=== PATIENT | female | born 1975 | race Caucasian/White ===

== ENCOUNTER → 2022-11-06 15:14 | Outpatient (CLI) | payer OTHER, SELFPAY ==
[2022-11-06 18:42] LABS: Alanine Aminotransferase 11 U/L (12-78); Albumin Level 4.1 g/dl (3.5-5.0); Alkaline Phosphatase 50 U/L (38-126); Aspartate Amino Transferase 19 U/L (14-36); Bilirubin,Direct 0.1 mg/dl (0.0-0.4); Bilirubin,Indirect 0.4 mg/dL (0.0-0.9); Bilirubin,Total 0.5 mg/dl (0.2-1.3); Bilirubin,Unconjugated 0.4 mg/dL (0.0-1.1); Chol/HDL Ratio 4.9 (1-3.5); Cholesterol 168 mg/dl (140-200); HDL Cholesterol 34 mg/dl (40-60); Total Protein,Serum 6.8 g/dl (6.3-8.2); Triglycerides 140 mg/dl (30-150); VLDL Cholesterol 28 mg/dL (0-40)
[2022-11-06 18:53] LABS: Direct LDL Cholesterol 109.91 mg/dL (100-129)
[2022-11-06 19:00] LABS: Free T4 (Free Thyroxine) 1.47 ng/dl (0.78-2.19)
[2022-11-06 19:13] LABS: Thyroid Stimulating Hormone 1.04 uIU/mL (0.465-4.68)
== END ==
PROVIDERS: PCP Family Medicine; Visit Provider Nurse Practitioner
DX: R06.00 Dyspnea, unspecified (principal); R07.9 Chest pain, unspecified; R00.2 Palpitations; I48.0 Paroxysmal atrial fibrillation; I10 Essential (primary) hypertension; R94.31 Abnormal electrocardiogram [ECG] [EKG]
CPT/HCPCS: 36415; 80061; 80076; 84439; 84443; 93225; 93226

== ENCOUNTER 2022-11-22 08:48 | Emergency (ER) | payer OTHER, SELFPAY ==
[2022-11-22] VITALS (15 sets, daily range): BP systolic 131–178; BP diastolic 65–94; PULSE 72–88; RESP 12–22; TEMP 36.8–37.2; O2SAT 96–100; BMI 46.0
--- NOTE | 2022-11-22 08:48 | ECG_ITS ---
APPROVED REPORT Exam: Resting ECG HR:93 bpm ECG Measurements Heart Rate 93 AXES SD 129 P 50 QRSd 83 QRS 17 QT 357 T 22 QTc 408 Conclusion SINUS RHYTHM NONSPECIFIC T-WAVE ABNORMALITY BORDERLINE ECG UNCONFIRMED REPORT Electronically signed by : Son Houser MD 11/23/2022 08:55:12
--- NOTE | 2022-11-22 08:54 | XR_ITS ---
FINAL REPORT CLINICAL HISTORY: CHEST PAIN, soa FINDINGS: A portable view of the chest is obtained. Cardiac and mediastinal silhouettes are normal. The lungs are clear. There is no pleural effusion or pneumothorax. IMPRESSION: No acute process on this portable exam. Reviewed, Interpreted and Dictated by Florencia Ruiz MD Transcribed by Betty Reddy Authenticated and [facility]
--- NOTE | 2022-11-22 09:00 | PC.NURSE ---
XR at bedside.
--- NOTE | 2022-11-22 09:17 | HMH.EDGENADL ---
Discharge Plan Disposition Patient Disposition: Home, Self-Care Prescriptions Prescriptions: No Action No Known Home Medications Referrals Follow up/Referrals: Provider,MD Vonnie [Primary Care Provider] - See instructions Activity Restrictions/Add. Instructions Additional Instructions/Restrictions: Your palpitations and headache were secondary to acute blood loss anemia from your prolonged abnormal uterine bleeding please continue follow-up with your [facility] doctor in specifically her hysterectomy next that was scheduled today. Please do not restart your Eliquis until indicated by your primary care physician. Return with any concerns. Clinical Impressions Clinical Impression: Palpitations, Signs and symptoms of anemia, Acute blood loss anemia, Abnormal uterine bleeding Discharge ED Provider: Gio Kaplan General Adult HPI General Chief complaint: Recheck/Abnormal Lab/Rx Stated complaint: chest pain Time Seen by Provider: 11/22/22 09:18 History of Present Illness HPI narrative: Patient is a 47-year-old female presenting with multiple complaints. States that she is been having chest palpitations with exertion recently. States that she is also been having significant vaginal bleeding over the last month. Claims that she was diagnosed with atrial fibrillation within the last month and started on Eliquis which is around the time she started having the symptoms including the vaginal bleeding she self DC'd that medication and has been following with [facility] doctor with escalating doses of hormone therapy to getting control of her vaginal bleeding which has been slightly improving. She states that her chest discomfort is described as pounding and specifically with exertion there is no pressure or significant pain. She denies any fevers chills denies any history of PTE or DVT. Related Data Home Medications Medication Instructions Recorded Confirmed No Known Home Medications 11/06/22 11/06/22 Allergies Allergy/AdvReac Type Severity Reaction Status Date / Time acetaminophen [From Percocet] AdvReac Nausea Verified 11/06/22 14:22 oxycodone [From Percocet] AdvReac Nausea Verified 11/06/22 14:22 [facility] Disclaimer: The information contained in this section may have been updated after the patient was seen, as this information can be updated by other users. Medical History (Updated 11/22/22 @ 14:33 by Gio Kaplan MD) Abnormal electrocardiogram [ECG] [EKG] Atrial fibrillation Chest pain Dyspnea HTN (hypertension) PAF (paroxysmal atrial fibrillation) Palpitations Family History (Updated 11/06/22 @ 14:21 by Lindsey Pineda) Mother Diabetes Social History (Updated 11/06/22 @ 14:19 by Lindsey Pineda) Smoking Status: Never smoker alcohol intake: never substance use type: denies use current occupational status: employed Travel in the last 8 weeks: Inside the [place] ROS Obtained: Yes All systems reviewed & no additional complaints except as documented Physical Exam General General appearance: alert and other (Pallorous) Chest Chest inspection: Present normal inspection and symmetric chest wall rise; Absent tenderness or rash Respiratory Respiratory exam: Present normal lung sounds bilaterally; Absent respiratory distress, wheezes or stridor Cardiovascular Cardiovascular exam: Present regular rate; Absent tachycardia Abdominal Exam Abdominal exam: Present soft; Absent distention or tenderness Neurological Exam Neurological exam: Present alert; Absent oriented X3 Medical Decision Making Timi Inquiry Pt receiving controlled substance: No Vital Signs: 11/22/22 09:13 11/22/22 09:33 11/22/22 12:20 Temperature 98.3 F 98.9 F Temperature Source Oral Oral Pulse Rate 87 88 Pulse Rate [Left Radial] 86 Respiratory Rate 22 18 20 TAR Vitals Timing Pre-Blood Vitals Blood Pressure 178/77 H 133/93 H Blood Pressure [Right Arm] 169/87 H Blood P
[2022-11-22 09:18] LABS: Basophils # 0.1 K/mm3 (0-0.2); Basophils % 0.7 % (0.1-2.0); Eosinophils # 0.1 K/mm3 (0.0-0.4); Eosinophils % 1.5 % (0.1-12.0); Hematocrit 22.1 % (37.0-47.0); Lymphocytes # 2.3 K/mm3 (0.7-4.5); Mean Corpuscular HGB Conc 31.2 g/dL (31.8-35.4); Mean Corpuscular Hemoglobin 27.2 pg (27.0-31.2); Mean Corpuscular Volume 87.2 fl (81-99); Monocytes # 0.4 K/mm3 (0.1-1.0); Monocytes % 5.5 % (1.7-9.3); Neutrophils # 4.6 K/mm3 (1.8-7.8); Neutrophils % 61.3 % (37.0-80.0); Platelet Count 432 K/mm3 (142-424); Red Blood Count 2.53 M/mm3 (4.20-5.40); Red Cell Distribution Width 19.1 % (11.5-17.5); White Blood Count 7.6 K/mm3 (4.8-10.8)
[2022-11-22 09:20] LABS: Chloride 115 mmol/L (98-107); Potassium 3.8 mmoL/L (3.5-5.1); Sodium 140 mmol/L (136-145)
[2022-11-22 09:23] LABS: Anion Gap 7.8 mEq/L (5-15); Blood Urea Nitrogen 8 mg/dl (7-17); Calcium 7.8 mg/dl (8.4-10.2); Carbon Dioxide 21 mmol/L (22.0-30.0); Creatinine Clearance Estimated 96 mL/min (50-200); Estimated Glomerular Filt Rate 107 ml/min (>60); GFR (African American) 130 ML/MIN (>60); Glucose 97 mg/dl (74-100)
[2022-11-22 09:30] LABS: Hemoglobin 6.9 g/dL (12.2-16.2)
--- NOTE | 2022-11-22 09:31 | PC.NURSE ---
Received critical results, Hgb 6.9, Hct 22.1. Dr. Kaplan notified.
[2022-11-22 09:38] LABS: Troponin I < 0.01 ng/ml (0.00-0.034)
[2022-11-22 12:50] LABS: Troponin I < 0.01 ng/ml (0.00-0.034)
== END 2022-11-22 14:50 | disposition home or self-care (01) ==
PROVIDERS: Emergency Provider Student in an Organized Health Care Education/Training Program
DX: R00.2 Palpitations (principal); D64.9 Anemia, unspecified; N93.9 Abnormal uterine and vaginal bleeding, unspecified; R07.89 Other chest pain; I48.0 Paroxysmal atrial fibrillation; I10 Essential (primary) hypertension; Z86.79 Personal history of other diseases of the circulatory system; Z83.3 Family history of diabetes mellitus
CPT/HCPCS: 36415; 71045; 80048; 84484; 85025; 86850; 93005; 99285; P9016

== ENCOUNTER 2023-05-16 13:33 | Emergency (ER) | payer OTHER, SELFPAY ==
--- NOTE | 2023-05-16 13:29 | ECG_ITS ---
APPROVED REPORT Exam: Resting ECG HR:160 bpm ECG Measurements Heart Rate 160 AXES QRSd 78 QRS 57 QT 281 T 38 QTc 370 Conclusion ATRIAL FIBRILLATION WITH RAPID VENTRICULAR RESPONSE MODERATE ST DEPRESSION [0.05+ mV ST DEPRESSION] CRITICAL TEST RESULT UNCONFIRMED REPORT Electronically signed by : Son Houser MD 05/16/2023 17:15:29
[2023-05-16 13:34] VITALS: BP 108/87; PULSE 161; RESP 18; TEMP 36.9; O2SAT 96; BMI 47.0
[2023-05-16 13:40] VITALS: BP 108/87; PULSE 60; RESP 18; O2SAT 98
--- NOTE | 2023-05-16 13:40 | PC.NURSE ---
Prior to Metoprolol administration, pt cardiac rhythm converted to NSR HR 69 without intervention. Hold Metoprolol IVP at this time. Awaiting new orders.
[2023-05-16 13:48] VITALS: BP 108/87; PULSE 69; RESP 20
--- NOTE | 2023-05-16 13:50 | ECG_ITS ---
APPROVED REPORT Exam: Resting ECG HR:72 bpm ECG Measurements Heart Rate 72 AXES OK 135 P -3 QRSd 76 QRS -1 QT 377 T -6 QTc 401 Conclusion SINUS RHYTHM Isolated Q in III of questionable significance BORDERLINE ECG UNCONFIRMED REPORT Electronically signed by : Son Houser MD 05/16/2023 17:15:22
--- NOTE | 2023-05-16 14:15 | PC.NURSE ---
pt resting in bed no needs at this time,call light at bs
--- NOTE | 2023-05-16 14:30 | HMH.EDGENADL ---
Discharge Plan Disposition Patient Disposition: Left Against Medical Advice Condition: Good Prescriptions Prescriptions: No Action No Known Home Medications Referrals Follow up/Referrals: Provider,Referral, MD [Primary Care Provider] - See instructions Clinical Impressions Clinical Impression: Atrial fibrillation with RVR Discharge ED Provider: Cornelius Souza I General Adult HPI General Chief complaint: Arrhythmia/Palpitations Stated complaint: Afib Time Seen by Provider: 05/16/23 13:40 Mode of Arrival: EMS Source of Information: Patient Limitations: No Limitations Description of Symptoms (Recalled from ER Triage Doc. by RN): Presents to ED with via EMS duee heart palpitations and dizziness; Of note patient was in a-fib RVR en route with HR of 170-180 . 2 doses of adenisone administered. Patient does have hx of a-fib/htn/ and PE's. Patient reports that she was RX'd Metoprolol and Eliquis but stopped taking them. History of Present Illness HPI narrative: Patient is a 47-year-old female, history of hypertension, A-fib presenting to the emergency department in A-fib with RVR. Patient reports that symptoms started approximately 1.5 to 2 hours ago. She reports severe palpitations, lightheadedness and dizziness which prompted her to call EMS. EMS reportedly gave 2 doses of adenosine without improvement in symptoms and in heart rate, patient initially had a heart rate up to the 180s. She is denying any chest pain, shortness of breath or difficulty breathing, abdominal pain, nausea, vomiting. Patient states that previously she had prescriptions for some medications and follow-up with cardiology, believes that she had her first episode of A-fib with RVR several months ago. She states that she has not been taking any of her medicines for several months, as one of them was upsetting my stomach so she stopped taking all of them. This includes her blood thinner. Denies any episodes of syncope, fever, chills, cough, congestion, runny nose. Believes that she has a personal history of either PE or DVT. Related Data Home Medications Medication Instructions Recorded Confirmed No Known Home Medications 11/06/22 11/06/22 Allergies Allergy/AdvReac Type Severity Reaction Status Date / Time acetaminophen [From Percocet] AdvReac Nausea Verified 11/06/22 14:22 oxycodone [From Percocet] AdvReac Nausea Verified 11/06/22 14:22 PFSH PFSH Disclaimer: The information contained in this section may have been updated after the patient was seen, as this information can be updated by other users. Medical History (Updated 05/16/23 @ 14:46 by Delfina Lennon RN) Abnormal electrocardiogram [ECG] [EKG] Atrial fibrillation Chest pain Dyspnea HTN (hypertension) PAF (paroxysmal atrial fibrillation) Palpitations Family History (Updated 11/06/22 @ 14:21 by Lindsey Pineda) Mother Diabetes Social History (Updated 11/06/22 @ 14:19 by Lindsey Pineda) Smoking Status: Current every day smoker alcohol intake: never substance use type: denies use current occupational status: employed Travel in the last 8 weeks: Inside the [place] ROS Obtained: Yes All systems reviewed & no additional complaints except as documented Constitutional Constitutional: Reports system reviewed and no additional complaints, except as documented Cardiovascular Cardiovascular: Reports system reviewed and no additional complaints, except as documented Respiratory Respiratory: Reports system reviewed and no additional complaints, except as documented Gastrointestinal Gastrointestingal: Reports system reviewed and no additional complaints, except as documented Musculoskeletal Musculoskeletal: Reports system reviewed and no additional complaints, except as documented Integumentary/Breasts Skin/Breast: Reports system reviewed and no additional complaints, except as documented Neurologic Neurologic: Reports system reviewed and no a
[2023-05-16 14:31] VITALS: BP 117/85; PULSE 72; RESP 16; O2SAT 98
[2023-05-16 14:32] LABS: Basophils % 0.6 % (0.1-2.0); Eosinophils # 0.2 K/mm3 (0.0-0.4); Eosinophils % 2.2 % (0.1-12.0); Hematocrit 41.6 % (37.0-47.0); Hemoglobin 12.9 g/dL (12.2-16.2); Lymphocytes % 30.1 % (10-50); Mean Corpuscular HGB Conc 31.1 g/dL (31.8-35.4); Mean Corpuscular Hemoglobin 25.9 pg (27.0-31.2); Mean Corpuscular Volume 83.3 fl (81-99); Mean Platelet Volume 8.5 fl (7.4-10.4); Monocytes # 0.3 K/mm3 (0.1-1.0); Monocytes % 5.1 % (1.7-9.3); Neutrophils # 4.2 K/mm3 (1.8-7.8); Platelet Count 341 K/mm3 (142-424); Red Blood Count 4.99 M/mm3 (4.20-5.40); Red Cell Distribution Width 19.2 % (11.5-17.5); White Blood Count 6.7 K/mm3 (4.8-10.8)
[2023-05-16 14:35] LABS: Anion Gap 10.7 mEq/L (5-15); Blood Urea Nitrogen 6 mg/dl (7-17); Calcium 8.8 mg/dl (8.4-10.2); Carbon Dioxide 24 mmol/L (22.0-30.0); Chloride 111 mmol/L (98-107); Creatinine Clearance Estimated 79 mL/min (50-200); Estimated Glomerular Filt Rate 90 ml/min (>60); GFR (African American) 109 ML/MIN (>60); Glucose 106 mg/dl (74-100); Potassium 3.7 mmoL/L (3.5-5.1); Sodium 142 mmol/L (136-145)
[2023-05-16 14:39] VITALS: BP 117/85; PULSE 73; RESP 16; TEMP 36.9; O2SAT 96
[2023-05-16 14:41] LABS: D-Dimer 0.91 ug/mL (0.0-0.5)
[2023-05-16 14:52] LABS: T4 (Thyroxine) 9.6 ug/dl (5.53-11.0)
[2023-05-16 14:58] LABS: HCG Qualitative, Serum Negative (Negative)
[2023-05-16 15:06] LABS: Thyroid Stimulating Hormone 4.02 uIU/mL (0.465-4.68)
== END 2023-05-16 14:46 | disposition left against medical advice (07) ==
PROVIDERS: Emergency Provider Emergency Medicine
DX: I48.91 Unspecified atrial fibrillation (principal); I10 Essential (primary) hypertension; R42 Dizziness and giddiness; F17.200 Nicotine dependence, unspecified, uncomplicated
CPT/HCPCS: 80048; 84436; 84443; 84703; 85025; 85378; 93005; 96374; 99285

== ENCOUNTER 2023-09-18 10:36 | Emergency (ER) | payer OTHER, SELFPAY ==
[2023-09-18 10:46] VITALS: BP 171/87; PULSE 73; RESP 20; TEMP 37.1; O2SAT 97; BMI 42.5
--- NOTE | 2023-09-18 11:05 | HMH.EDGENADL ---
Discharge Plan Disposition Patient Disposition: Home, Self-Care Condition: Good Prescriptions Prescriptions: New acyclovir 800 mg tablet 800 mg PO BID Qty: 20 0RF sulfamethoxazole-trimethoprim [Bactrim DS] 800-160 mg tablet 1 tab PO BID 14 Days Qty: 28 0RF Referrals Follow up/Referrals: Andrew Ortiz MD [Primary Care Provider] - See instructions Activity Restrictions/Add. Instructions Additional Instructions/Restrictions: You were evaluated in the emergency department today. At this time, we feel that you likely have a viral infection that is started in your fingers, but there is likely a superimposed bacterial infection. Given this, we have provided you with prescription for antiviral and antibiotic. Please complete the full course of both of these as prescribed. Take Tylenol and ibuprofen at home as needed for pain. Follow-up with your primary care provider over the next week for wound reassessment. Return to the emergency department for new or worsening symptoms. Clinical Impressions Clinical Impression: Herpetic josefina, Cellulitis of finger Instructions Patient Instructions: DI for Cellulitis -- Adult, DI for Eczema Herpeticum, DI for Skin Abscess Discharge ED Provider: Regine Johnson General Adult HPI General Chief complaint: Skin/Abscess/Foreign Body Stated complaint: Infection in left middle ring and pinkie fingers Time Seen by Provider: 09/18/23 10:44 Mode of Arrival: Ambulatory Source of Information: Patient Limitations: No Limitations Description of Symptoms (Recalled from ER Triage Doc. by RN): pt to ed c/o left pinky, ring, and middle finger swelling. pt states she wears press on nails and believes she may have an infection. pt states symptoms have persisted x3 days. History of Present Illness HPI narrative: This patient is a 47-year-old female with a history of hypertension and paroxysmal atrial fibrillation presenting to the emergency department for evaluation with concern for pain, blistering, and swelling to the distal aspect of her left pinky, ring, and middle finger. She states that she believes that it is a reaction to glue from press on nails. This has been going on for 3 days and is progressively worsening. No other concerns noted at this time. Related Data Previous Rx's Medication Instructions Recorded acyclovir 800 mg tablet 800 mg PO BID #20 tabs 09/18/23 sulfamethoxazole 800 1 tab PO BID 14 days #28 tabs 09/18/23 mg-trimethoprim 160 mg tablet (Bactrim DS) Allergies Allergy/AdvReac Type Severity Reaction Status Date / Time acetaminophen [From Percocet] AdvReac Nausea Verified 11/06/22 14:22 oxycodone [From Percocet] AdvReac Nausea Verified 11/06/22 14:22 PFSH PFS Disclaimer: The information contained in this section may have been updated after the patient was seen, as this information can be updated by other users. Medical History Abnormal electrocardiogram [ECG] [EKG] Atrial fibrillation Chest pain Dyspnea HTN (hypertension) PAF (paroxysmal atrial fibrillation) Palpitations Family History Mother Diabetes Social History Smoking Status: Current every day smoker alcohol intake: never substance use type: denies use current occupational status: employed Travel in the last 8 weeks: [place] the [place] ROS Obtained: Yes All systems reviewed & no additional complaints except as documented Physical Exam General General appearance: alert and in no apparent distress Head Head exam: atraumatic and normocephalic Eye Eye exam: Present normal appearance, PERRL and EOMI ENT ENT exam: Present normal exam, normal oropharynx, mucous membranes moist and normal external ear exam Neck Neck exam: Present normal inspection, full ROM and trachea midline; Absent tenderness Chest
[2023-09-18 11:16] VITALS: BP 162/94; PULSE 63; RESP 20; TEMP 37.1; O2SAT 97
== END 2023-09-18 11:24 | disposition home or self-care (01) ==
PROVIDERS: Emergency Provider Emergency Medicine; PCP Family Medicine
DX: L03.012 Cellulitis of left finger; I48.0 Paroxysmal atrial fibrillation; I10 Essential (primary) hypertension; F17.200 Nicotine dependence, unspecified, uncomplicated
CPT/HCPCS: 96372; 99283